=== PATIENT | male | born 1980 | race Caucasian/White ===

== ENCOUNTER 2016-05-17 20:38 | Emergency (ER) | payer MEDICAID ==
[~2016-05-17] VITALS: Ht 167.6 cm; Wt 68.0 kg
[2016-05-17 21:18] VITALS: BP 109/52
[2016-05-17] MEDS ORDERED: HYDROCODONE/APAP 5/325MG TABLET. PO ONE (22:00)
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
[2016-05-17] MEDS ORDERED: HYDR-971 PO (23:34)
[2016-05-17] MEDS ORDERED: AMOX1TAB61 PO (23:34)
== END 2016-05-17 23:37 | disposition home or self-care (01) ==
LOC: ER 20:38
DX: S02.40DA Maxillary fracture, left side, initial encounter for closed fracture (principal); S02.40CA Maxillary fracture, right side, initial encounter for closed fracture; S02.80XA Fracture of other specified skull and facial bones, unspecified side, initial encounter for closed fracture; Z88.8 Allergy status to other drugs, medicaments and biological substances; Z88.5 Allergy status to narcotic agent; Z98.890 Other specified postprocedural states; W17.89XA Other fall from one level to another, initial encounter; Y93.89 Activity, other specified; Y99.8 Other external cause status; Y92.89 Other specified places as the place of occurrence of the external cause
CPT/HCPCS: 70450; 70486; 99284-25

== ENCOUNTER 2016-07-05 17:32 | Emergency (ER) | payer SELFPAY ==
[~2016-07-05] VITALS: Ht 167.6 cm; Wt 72.6 kg
[~2016-07-05 17:32] MED LIST: AMOX1TAB61 PO; HYDR-971 PO
[2016-07-05] MEDS ORDERED: CLONAZEPAM 0.5 MG TABLET PO STA (18:19)
[2016-07-05] MEDS ORDERED: OXYCODONE/APAP 7.5/325 TABLET. PO ONE (18:30)
--- NOTE | 2016-07-05 18:30 | EKG ---
[facility] [address] [place] [address] Test Date: 2016-07-05 Test Time: 18:24:49 Pat Name: SRIRAM CASTILLO Department: Room: Gender: M Director Of Outside Sales: : 1980 Requested By: SHAKIRA LIZ Order Number: [id number] Reading MD: Jorge Luis Lyman Measurements Intervals [place] Rate: 93 P: 42 MI: 152 QRS: 50 QRSD: 78 T: 53 QT: 352 QTc: 440 Interpretive Statements SINUS RHYTHM Electronically Signed On 07-07-2016 8:17:28 CDT by Jorge Luis Lyman
[2016-07-05] MEDS ORDERED: HYDR-963 PO (18:38)
[2016-07-05] MEDS ORDERED: CLON2TAB PO (18:38)
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
[2016-07-05 18:41] VITALS: BP 104/54
== END 2016-07-05 19:30 | disposition home or self-care (01) ==
LOC: ER 17:32
DX: F41.9 Anxiety disorder, unspecified (principal); G89.29 Other chronic pain; M79.604 Pain in right leg; Z89.511 Acquired absence of right leg below knee; Z88.6 Allergy status to analgesic agent; Z88.8 Allergy status to other drugs, medicaments and biological substances
CPT/HCPCS: 93005; 99284-25

== ENCOUNTER 2016-07-08 17:19 | Emergency (ER) | payer SELFPAY ==
[~2016-07-08 17:19] MED LIST changes: +CLON2TAB PO; +HYDR-963 PO
[2016-07-08] MEDS ORDERED: IV RINGERS,LACTATED 1000ML 1,000 ML IV SCH (18:40)
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
[2016-07-08 20:59] VITALS: BP 120/76
[2016-07-08] MEDS ORDERED: CLON2TAB PO (21:14)
[2016-07-08] MEDS ORDERED: HYDR-963 PO (21:14)
== END 2016-07-08 21:32 | disposition home or self-care (01) ==
LOC: ER 17:19
DX: F41.9 Anxiety disorder, unspecified (principal); G89.29 Other chronic pain; F32.9 Major depressive disorder, single episode, unspecified; Z89.511 Acquired absence of right leg below knee; Z88.5 Allergy status to narcotic agent; Z88.8 Allergy status to other drugs, medicaments and biological substances
CPT/HCPCS: 99284

== ENCOUNTER 2016-09-29 00:02 | Emergency (ER) | payer SELFPAY ==
[~2016-09-29] VITALS: Ht 167.6 cm; Wt 68.0 kg
[2016-09-29 00:17] VITALS: BP 122/65
[2016-09-29] MEDS ORDERED: HYDR-2758 PO (00:20)
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
[2016-09-29] MEDS ORDERED: HYDROcodone/APAP 5/325MG 1 TAB TABLET PO ONE (00:45)
== END 2016-09-29 00:32 | disposition home or self-care (01) ==
LOC: ER 00:02
DX: F41.9 Anxiety disorder, unspecified (principal); G89.4 Chronic pain syndrome; M79.661 Pain in right lower leg; F32.9 Major depressive disorder, single episode, unspecified; Z89.511 Acquired absence of right leg below knee; Z88.5 Allergy status to narcotic agent; Z88.8 Allergy status to other drugs, medicaments and biological substances
CPT/HCPCS: 99283; 99284

== ENCOUNTER 2016-10-31 21:58 | Emergency (ER) | payer SELFPAY ==
[~2016-10-31] VITALS: Ht 167.6 cm; Wt 68.0 kg
[~2016-10-31 21:58] MED LIST changes: +HYDR-2758 PO
[2016-10-31 23:01] VITALS: BP 103/66
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
== END 2016-10-31 23:27 | disposition left against medical advice (07) ==
LOC: ER 21:58
DX: T87.89 Other complications of amputation stump (principal); M25.561 Pain in right knee; F41.9 Anxiety disorder, unspecified; Z89.511 Acquired absence of right leg below knee; Z53.21 Procedure and treatment not carried out due to patient leaving prior to being seen by health care provider
CPT/HCPCS: 99284

== ENCOUNTER 2016-10-31 23:55 | Emergency (ER) | payer SELFPAY ==
[~2016-10-31] VITALS: Ht 167.6 cm; Wt 68.0 kg
[2016-11-01 00:30] VITALS: BP 105/65
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
[2016-11-01] MEDS ORDERED: oxyCODONE/APAP 5/325 1 TAB TABLET PO ONE (01:15)
--- NOTE | 2016-11-01 07:32 | RAD ---
Exam performed: 3 views right knee. Clinical indication: Right knee pain, status post fall Date of Service: 11/01/16 Comparison:No priors AP, oblique and lateral radiographs of the knee reveal the osseous structures to be intact and well aligned. There is slight prepatellar soft tissue swelling. Below knee amputation is noted. The joint space is well-preserved. The articular margins are smooth. Evidence of calcific loose body or joint effusion is absent. Impression: Below-knee amputation. No acute bony abnormality seen. Mild prepatellar soft tissue swelling is identified
== END 2016-11-01 01:58 | disposition home or self-care (01) ==
LOC: ER 23:55
DX: T87.89 Other complications of amputation stump (principal); M25.561 Pain in right knee; G89.29 Other chronic pain; Z89.511 Acquired absence of right leg below knee
CPT/HCPCS: 73562; 99284

== ENCOUNTER 2016-12-28 18:50 | Emergency (ER) | payer SELFPAY ==
[~2016-12-28] VITALS: Ht 167.6 cm; Wt 61.2 kg
[2016-12-28] MEDS ORDERED: IV NORMAL SALINE 1000ML BAG 1,000 ML IV SCH (19:12)
[2016-12-28 19:20] LABS: BASO % 1 % (0-3); EOS % 1 % (0-3); HEMATOCRIT 45.3 % (39.0-53.0); HEMOGLOBIN 15.5 g/dL (13.0-17.5); LYMPH % 24 % (24-48); MEAN CORPUSCULAR HEMOGLOBIN 32 pg (25-35); MEAN CORPUSCULAR HGB CONC 34 g/dL (31-37); MEAN CORPUSCULAR VOLUME 94 fL (79-100); MONO % 9 % (0-9); NEUT % 65 % (31-73); PLATELET COUNT 207 x10^3/uL (140-400); RED BLOOD COUNT 4.81 x10^6/uL (4.30-5.70); RED CELL DISTRIBUTION WIDTH 13.4 % (11.5-14.5); WHITE BLOOD COUNT 8.1 x10^3/uL (4.0-11.0)
[2016-12-28 19:29] LABS: CALCIUM 8.7 mg/dL (8.5-10.1); CREATININE 0.7 mg/dL (0.7-1.3); GFR 128.3; POTASSIUM 3.7 mmol/L (3.5-5.1)
[2016-12-28 19:33] LABS: BILIRUBIN,URINE NEGATIVE (NEG); GLUCOSE,URINE 250 mg/dL (NEG); NITRITE,URINE NEGATIVE (NEG); PROTEIN,URINE NEGATIVE (NEG-TRACE); UROBILINOGEN,URINE 0.2 mg/dL (0.2 mg/dL)
[2016-12-28 19:36] LABS: ALBUMIN 3.8 g/dL (3.4-5.0); ALBUMIN/GLOBULIN RATIO 1.2 (1.0-1.7); TOTAL BILIRUBIN 0.3 mg/dL (0.2-1.0); TOTAL PROTEIN 7.1 g/dL (6.4-8.2)
[2016-12-28 19:37] LABS: RBC,URINE OCC /HPF (0-2)
[2016-12-28 19:38] LABS: BACTERIA,URINE 0 /HPF (0-FEW); SQUAMOUS EPITHELIAL CELL,UR OCC /LPF
[2016-12-28] MEDS ORDERED: fentaNYL PF VIAL 100 MCG/2 ML VIAL IV PRN (19:45)
[2016-12-28] MEDS ORDERED: KETOROLAC 30 MG/ML INJ. IV ONE (19:45)
--- NOTE | 2016-12-28 19:54 | RAD ---
History: Severe left flank pain for 2 days. Comparison: None. Technique: CT of the abdomen and pelvis was performed without intravenous or oral contrast. Exposure: One or more of the following individualized dose reduction techniques were utilized for this examination: 1. Automated exposure control 2. Adjustment of the mA and/or kV according to patient size 3. Use of iterative reconstruction technique Findings: Evaluation of solid organs is limited by lack of intravenous contrast. Evaluation of enteric structures may be limited by lack of oral contrast. Liver, spleen, pancreas, gallbladder, and bilateral adrenal glands unremarkable. No bowel obstruction or inflammation is seen. Appendix is without evidence of inflammation. No free air or free fluid is seen in the abdomen or pelvis. A few surgical clips can be seen involving the left inguinal region, suggesting changes of previous inguinal herniorrhaphy. No free air or free fluid is seen in the abdomen or pelvis. Urinary bladder is unremarkable. Both ureters are free stone or obstruction. The right kidney demonstrates presence of 3 or 4 nonobstructive nephroliths ranging in size from punctate to 2 mm up. The left kidney demonstrates 5 or 6 nonobstructing nephroliths ranging in size from punctate to 2 mm. Impression: 1. No acute abnormality identified in the abdomen or pelvis. 2. Bilateral nonobstructive nephrolithiasis. Electronically signed by: Miles Alvarez MD (12/28/2016 7:51 PM) [facility]
[2016-12-28 20:00] VITALS: BP 123/65
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
== END 2016-12-28 20:15 | disposition home or self-care (01) ==
LOC: ER 18:50
DX: R10.32 Left lower quadrant pain (principal); R11.0 Nausea; R30.0 Dysuria; M54.5 Low back pain; Z88.8 Allergy status to other drugs, medicaments and biological substances; Z88.5 Allergy status to narcotic agent; Z87.442 Personal history of urinary calculi; Z89.511 Acquired absence of right leg below knee
CPT/HCPCS: 36415; 74176; 80053; 81001; 85025; 96361; 96374; 96375; 99285; J1885; J3010; J7030